=== PATIENT | female | born 1930 | race Caucasian/White ===

== ENCOUNTER → 2016-12-29 | Outpatient (CLI) | payer OTHER, BC ==
[~2016-12-29] MED LIST: ALBU18002 INH; ALBU1AER9 INH; ASPI81TA28 PO; AZEL30SP NAE; CALC8.5C PO; CEPH500C PO; CHOL1000 PO; CHOLPOW; FLUT0.0529 NAE; FLUT0.15 NAE; HYOS0.3725 SL; IBAN150T PO; LEVO1TAB33 PO; LEVO50TA6 PO; LEVO75TA5 PO; LISI-729 PO; LISI10TA PO; LORA-741 PO; MULT1TAB32 PO; MULTCAP7 PO; OMEG10007 PO; OXGN; PRD10 PO; PRED-301 PO; PRLSR20 PO; SYMIN/8045 INH; WARF-285 PO; WARF4TAB8 PO; WARF5TAB90 PO; [UNRECOGNIZED DRUG - CODE] PO
[2016-12-29 14:26] LABS: BASO % 0.3 %; BASO ABS # 0.02 K/uL (0-0.2); COMPLETE YES; HEMATOCRIT 38.3 % (37-47); IG% 0.3 %; LYMPH % 34.2 %; LYMPH ABS # 2.58 K/uL (1.2-3.4); MEAN CELL VOLUME 94.3 fL (80-100); MEAN CORPUSCULAR HEMOGLOBIN 29.6 pg (25-34); MEAN CORPUSCULAR HGB CONC 31.3 g/dl (32-36); MEAN PLATELET VOLUME 10.6 fL (7.4-10.4); MONO % 9.3 %; NEUT % 53.9 %; PLATELET COUNT 202 K/uL (130-400); RED BLOOD COUNT 4.06 M/uL (4.2-5.4); WHITE BLOOD COUNT 7.55 K/uL (4.8-10.8)
[2016-12-29 14:40] LABS: ALB/GLOB RATIO 0.9 (0.9-2); ALKALINE PHOSPHATASE 42 U/L (45-117); ALT/SGPT 30 U/L (12-78); AST/SGOT 19 U/L (15-37); BLOOD UREA NITROGEN 27 mg/dl (7-18); BUN/CREATININE RATIO 22.4 (10-20); CALCIUM 8.9 mg/dl (8.5-10.1); CARBON DIOXIDE 34 mmol/L (21-32); CHLORIDE 102 mmol/L (98-107); GLUCOSE 78 mg/dl (70-99); SODIUM 141 mmol/L (136-145)
== END | disposition home or self-care (01) ==
LOC: C.LABBC 09:30
PROVIDERS: ATTEND Family Medicine
DX: E03.9 Hypothyroidism, unspecified (principal); M81.0 Age-related osteoporosis without current pathological fracture; N18.3 Chronic kidney disease, stage 3 (moderate); I26.99 Other pulmonary embolism without acute cor pulmonale

== ENCOUNTER → 2017-02-11 | Outpatient (CLI) | payer OTHER, BC ==
--- NOTE | 2017-02-11 10:01 | DIAGNOSTIC IMAGING REPORT ---
TWO VIEW CHEST CLINICAL HISTORY: Cough.. FINDINGS: PA and lateral chest radiographs are compared to study dated 02/11/2016 and 11/02/2014. Correlation is made with chest CT dated 09/24/2015. The heart is enlarged and there is atherosclerotic calcification of the thoracic aorta. The pulmonary vasculature is noncongested. Emphysema and chronic interstitial thickening are similar to previous. There is minimal left basilar atelectasis. No airspace consolidation or pleural effusion is identified. Asymmetric right apical scarring is similar appearance to studies dating back to 2014. There is no pneumothorax. The skeletal structures are osteopenic. Mild degenerative change is noted throughout the thoracic spine. IMPRESSION: Cardiomegaly and emphysema with no active disease in the chest. Electronically signed by: Vega Draper M.D. 02/11/2017 9:59 AM Dictated Date/Time: 02/11/2017 9:57 AM
== END | disposition home or self-care (01) ==
LOC: C.RADBBURG 00:35
PROVIDERS: ATTEND Physician Assistant
DX: R05 Cough (principal); J43.9 Emphysema, unspecified; I51.7 Cardiomegaly

== ENCOUNTER → 2017-02-12 | Outpatient (CLI) | payer OTHER, BC ==
--- NOTE | 2017-02-12 11:02 | DIAGNOSTIC IMAGING REPORT ---
DOUBLE CONTRAST BARIUM ESOPHAGRAM CLINICAL HISTORY: Dysphagia. COMPARISON STUDY: Abdominal CT dated 05/07/2015. TECHNIQUE: A standard air contrast barium esophagram is performed. Multiple spot images of the esophagus are acquired both upright and prone. FINDINGS: The patient swallowed barium without difficulty. There was slightly delayed transit of the barium pill. Moderate esophageal dysmotility is observed. The mucosal pattern is normal. There is a large pulsion diverticulum seen just above the gastroesophageal junction. This was also seen by CT on 05/07/2015. There is no evidence of intrinsic or extrinsic mass lesion. No aspiration was seen. The gastroesophageal junction distended normally. No gastroesophageal reflux could be elicited by having the patient perform the Valsalva maneuver. Fluoroscopy time: 1.2 minutes. Fluoroscopic images: 24 IMPRESSION: 1. Esophageal dysmotility with delayed transit of the barium pill. 2. 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 This was also seen by CT in 2014. Electronically signed by: Vega Draper M.D. 02/12/2017 11:01 AM Dictated Date/Time: 02/12/2017 10:58 AM
== END | disposition home or self-care (01) ==
LOC: C.RAD 10:14
PROVIDERS: ATTEND Physician Assistant
DX: R13.10 Dysphagia, unspecified (principal); R05 Cough; K22.4 Dyskinesia of esophagus; K22.5 Diverticulum of esophagus, acquired

== ENCOUNTER 2017-03-28 14:13 | Emergency (ER) | payer OTHER, BC ==
[~2017-03-28] VITALS: Ht 152.4 cm; Wt 57.0 kg
[~2017-03-28 14:13] MED LIST changes: -ALBU18002 INH; -AZEL30SP NAE; -CEPH500C PO; -CHOLPOW; -FLUT0.15 NAE; -HYOS0.3725 SL; -LEVO75TA5 PO; -LISI-729 PO; -LORA-741 PO; -OXGN; -WARF-285 PO; -WARF4TAB8 PO
[2017-03-28 14:17] VITALS: TEMP 36.7; Ht 152.4 cm; Wt 57.0 kg
[2017-03-28] MEDS ORDERED: ALBU18002 INH (14:35)
[2017-03-28] MEDS ORDERED: FLUT0.15 NAE (14:35)
[2017-03-28] MEDS ORDERED: LEVO75TA5 PO (14:35)
[2017-03-28] MEDS ORDERED: WARF-285 PO (14:35)
[2017-03-28] MEDS ORDERED: HYOS0.3725 SL (14:55)
[2017-03-28] MEDS ORDERED: XYLOCAINE 1%/SOD BICARB 20 ML VIAL INFIL ONE (15:15)
--- NOTE | 2017-03-28 15:39 | DIAGNOSTIC IMAGING REPORT ---
RIGHT SHOULDER MIN 2 VIEWS ROUTINE CLINICAL HISTORY: Right shoulder pain following fall. COMPARISON: None FINDINGS: Alignment of the right shoulder is anatomic. There is no acute fracture. There is mild arthritis of the right acromioclavicular and glenohumeral joints. IMPRESSION: 1. No acute fracture or dislocation of the right shoulder. 2. Mild osteoarthritis of the right shoulder. Electronically signed by: Parker Rey M.D. 03/28/2017 3:38 PM Dictated Date/Time: 03/28/2017 3:37 PM
[2017-03-28 16:22] VITALS: BP 137/74; PULSE 82; O2SAT 94
[2017-03-28] MEDS ORDERED: DIPHTHERIA/TETANUS/PERTUSSIS 0.5 ML SYR/VIAL ONE (16:24)
[2017-03-28] MEDS ORDERED: CEPH500C PO (16:29)
[2017-03-28] MEDS ORDERED: DIPHTHERIA/TETANUS/PERTUSSIS 0.5 ML SYR/VIAL IM. ONE (16:30)
--- NOTE | 2017-03-30 18:16 | EMERGENCY ROOM VISIT NOTE ---
ED Visit Note First contact with patient: 15:03 Chief complaint: Right lower leg laceration and right elbow skin tear after fall. Right shoulder pain HPI: This 86-year-old white female presents with her family for evaluation of a laceration on her right lower leg as well as a skin tear on her right elbow after falling while playing miniature golf. She tripped on the carpet. She fell onto her right side. She complains of pain in her right shoulder. She denies striking her head. She is on Coumadin. She has been ambulatory. Bleeding was controlled with pressure. They deny any numbness, tingling, or loss of consciousness. No complaints on the left side. Tetanus is believed to be up-to-date. Pain is 8/10. Supplemental sheet was reviewed and signed. Previous surgeries: Cholecystectomy, hysterectomy Medical history: Significant for previous PE and DVT, GERD, hypothyroidism, osteoporosis, osteoarthritis, COPD, hypertension, history of asthma Current Medications: Prednisone, aspirin 81 mg, multivitamin, vitamin D, Boniva , Coumadin 5 mg 4 x week, Prilosec 20 mg, Synthroid 75 g, Coumadin 3 mg 3 times per week, Flonase nasal spray, Levbid, albuterol inhaler Allergies: Amoxicillin, Celebrex, Augmentin, lovastatin, oxybutynin, ranitidine , Bactrim, zoledronic acid Tetanus: Unknown Family History: Significant for gallbladder disease. Parents are . Social History: Retired. Lives with her daughter. No tobacco use, no EtOH use. REVIEW OF SYSTEM: HEENT: No dizziness, visual problems, hearing loss, or tinnitus. There is no difficulty swallowing and no oral lesions are present. LYMPH: No adenopathy. PULMONARY: No cough, shortness of breath, sputum production or hemoptysis. CARDIOVASCULAR: No chest pain, palpitations or peripheral edema. GASTROINTESTINAL: No diarrhea, constipation, nausea, vomiting, or abdominal pain. GENITOURINARY: No dysuria, frequency, urgency or nocturia. NEUROLOGIC: No weakness, muscle tenderness, epilepsy or history of neurological problems. MUSCULOSKELETAL: No history of joint tenderness/swelling. Positive history of arthritis and arthralgias. SKIN: No rashes or lesions. PSYCHIATRIC: No history of depression or mental illness. ENDOCRINE: No history of diabetes or abnormal hair growth. Physical Exam: Vitals: Afebrile. Reviewed and filed in patient's chart General: Frail, elderly, white female, in no acute distress. Obvious discomfort. She is laying on the bed. Alert and oriented. Skin: Warm and dry with fair turgor. No rashes. Skin tear with ecchymosis is present over the olecranon of her right elbow. She has a large flap tear laceration on the lateral aspect of her right lower leg. It is approximately 11 cm in length. The patient is not diaphoretic. Small abrasion on her right knee. She has no visible injury to her head or neck. HEENT: Normocephalic atraumatic. Eyes PERRLA, EOMI. No conjunctiva or scleral injection. Ears TMs intact bilaterally with good light reflexes. No erythema or bulging. No hemotympanum. Canals are patent. Nares patent bilaterally without turbinate enlargement. No significant drainage. No epistaxis. Oropharynx without erythema or exudate. Uvula midline, oral mucosa moist. No lesions present. Heart: Heart RRR. No GR. 3/6 systolic ejection murmur noted. Peripheral pulses are 2+. Lungs: Lungs are clear to auscultation. No crackles rhonchi or wheezing. Good air movement. The patient is able to take a deep breath. Chest: No pain with palpation of the ribs. Musculoskeletal: She has no discomfort with palpation over her cervical, thoracic, or lumbar spine. She has discomfort with palpation over the right shoulder. It is over the rotator cuff musculature as well as the humeral head. No palpable deformity. It is not dislocated. She has full range of motion of her elbow. No pain with palpation around the elbow other than the skin tear. Supple motion of her hips and knees bilaterally. Supple motion of her ankles bilaterally. No laxity with stressing of her right knee. Neurologic: Gross sensation is intact across the upper and lower extremities by soft touch. Cranial nerves II through XII are intact. Data: Radiographic imaging obtained today of the right shoulder was read by radiology. No acute fracture or dislocation. Mild osteoarthritis. Impression: Fall. Right elbow skin tear. Right lower leg 11 cm Laceration. Right shoulder contusion Procedure: Informed oral consent was obtained for repair of the elbow and lower leg. Lower leg was prepped with Betadine and draped with a sterile towel. Area was anesthetized using 9 mL 1% plain buffered lidocaine in a direct infiltration. Thorough inspection was performed. There is no muscle or bone exposure. No foreign material is present. Wound was irrigated copiously using normal sterile saline under jet spray lavage. Wound was closed using 4-0 nylon. Excellent wound edge approximation was achieved. Hemostasis was achieved. Right elbow was then cleansed with Betadine and saline. Benzoin and Steri-Strips were used to approximate the skin tear. It is superficial. Good wound edge approximation was achieved. Hemostasis was achieved. Plan: Patient was educated regarding today's findings as was her family. Conservative care measures were discussed. Cleanse the wounds daily with soap and water and reapply a small amount of bacitracin on the leg wound only. Ice and elevate intermittently as needed for discomfort. Tylenol every 6 hours as needed for pain. Wound care handout was provided. Sutures out in 12-14 days. She may shower. Avoid soaking or swimming for two weeks. Return to the ER for any acute changes or signs of infection. In regard to the shoulder, she may require physical therapy to prevent adhesive capsulitis. Possibility of rotator cuff tear was discussed. I do not think this would be operative in an 86-year-old female. She may follow-up with her PCP or orthopedist for further evaluation. Sling was provided for comfort. Tetanus was updated using Adacel 0.5 mL IM. I did check with her several times to be sure that she did not strike her head. We did discuss the risks of intracranial injury in someone who is on Coumadin. She reiterated as did her family, that she did not strike her head. Problem List Medical Problems: (1) Asthma, Unspecified Status: Chronic (2) COPD (chronic obstructive pulmonary disease) Status: Chronic (3) Depressive Disorder Nec Status: Chronic (4) Hypertension Nos Status: Chronic (5) Pure Hypercholesterolem Status: Chronic (6) Thyroid disorder Status: Chronic Current/Historical Medications Scheduled Albuterol Sulfate (Proair Respiclick), 2 PUFF INH BID Aspirin (Aspirin Ec), 81 MG PO HS Budesonide/Formoterol Fumarate (Symbicort 80/4.5 Inhaler), 2 PUFFS INH BID Calcium W/ Vitamins D & K (Viactiv), 500 MG PO BID Cephalexin Monohydrate (Keflex), 500 MG PO TID Cholecalciferol (Vitamin D3), 1,000 UNITS PO DAILY Fish Oil ([place]-3), 1 CAP PO DAILY Fluticasone Propionate (Nasal) (Flonase Allergy Relief), 2 SPRAYS PERI DAILY Ibandronate Sodium (Boniva), 150 MG PO MONTHLY Lecithin (Lecithin-19), 1 CAP PO DAILY Levothyroxine Sodium (Levothyroxine Sodium), 75 MCG PO DAILY Lisinopril (Prinivil), 10 MG PO DAILY Multiple Vitamins W/ Minerals (One Daily Womens 50+), 0.5 TAB PO AMPM Multiple Vitamins W/ Minerals (Eye Vitamins), 1 CAP PO QAM Omeprazole (Prilosec), 20 MG PO DAILY Prednisone (Prednisone), 5 MG PO DAILY Warfarin Sodium (Coumadin), 5 MG PO 4XWK Warfarin Sodium (Warfarin Sodium), 3 MG PO 3XWK Scheduled PRN Hyoscyamine Sulfate (Levbid), 1 TAB SL UD PRN for abd pain Allergies Coded Allergies: Sulfamethoxazole w/Trimethoprim (Verified Adverse Reaction, Intermediate, AGITATION, 07/06/15) Amoxicillin (Verified Adverse Reaction, Unknown, unknown, 07/06/15) Celecoxib (Verified Adverse Reaction, Unknown, nausea, 07/06/15) Clavulanic Acid (Verified Adverse Reaction, Unknown, unknown, 07/06/15) Lovastatin (Verified Adverse Reaction, Unknown, effects muscles, 07/06/15) Oxybutynin (Verified Adverse Reaction, Unknown, nausea, 07/06/15) Ranitidine (Verified Adverse Reaction, Unknown, contraindicated while on warfarin, 03/28/17) Zoledronic Acid (Verified Adverse Reaction, Unknown, nausea, 07/06/15) Vital Signs Date Time Temp Pulse Resp B/P (MAP) Pulse Ox O2 Delivery O2 Flow Rate FiO2 03/28/17 16:22 82 18 137/74 94 Room Air 03/28/17 14:17 36.7 93 18 135/60 97 Room Air Medications Administered Medications (Trade) Dose Ordered Sig/Alexandr Route Start Time Stop Time Status Last Admin Dose Admin Lidocaine HCl (Buffered Lidocaine 1% Inj) 20 ml NOW ONCE INFIL 03/28/17 15:15 03/28/17 15:16 DC 03/28/17 15:15 20 ML Diphtheria/ Pertussis/Tetanus Vacc (Adacel Inj) 0.5 ml ONCE ONCE IM. 03/28/17 16:30 03/28/17 16:31 DC 03/28/17 16:28 0.5 ML Departure Information Impression Primary Impression: Laceration of leg not thigh, right Additional Impressions: Fall elbow skin tear, right Dispostion Home / Self-Care Condition GOOD Prescriptions Cephalexin Monohydrate (Keflex) 500 Mg Cap 500 MG PO TID, #21 CAP Prov: Gregorio Rabago,P.A. 03/28/17 Referrals No Doctor, Assigned (PCP) Forms HOME CARE DOCUMENTATION FORM, Days to leave dressing on : 1 Clean wound with;: soap and water Number of times/day to clean wound: 1 Coat wound with: antibiotic ointment Suture removal in how many days: 12-14 TYLENOL USE, WOUND CARE INSTRUCTIONS, IMPORTANT VISIT INFORMATION Patient Instructions My [facility] Additional Instructions Cleanse the wound daily with soap and water Avoid swimming or soaking for 2 weeks you may shower and wash your hands Tylenol every 6 hours as needed for discomfort Sutures out in 12-14 days Return to the ED for any acute changes or signs of infection Steri-Strips on the elbow will fall off on their own in 5-7 days Keflex one pill 3 times a day 7 days Follow-up with your PCP for your shoulder, and to discuss physical therapy Use a sling as needed for comfort. Ice to the shoulder frequently to reduce pain and swelling Gentle motion daily to prevent stiffness Problem Qualifiers
[2017-04-06] MEDS ORDERED: CHOLPOW (11:07)
[2017-04-06] MEDS ORDERED: LORA-741 PO (11:07)
[2017-04-06] MEDS ORDERED: AZEL30SP NAE (11:07)
[2017-05-19] MEDS ORDERED: OXGN (10:48)
[2017-06-09] MEDS ORDERED: WARF4TAB8 PO (15:29)
[2017-07-16] MEDS ORDERED: LISI-729 PO (10:30)
== END 2017-03-28 16:40 | disposition home or self-care (01) ==
LOC: C.EDB 14:14 → C.EDD 16:40
DX: S81.811A Laceration without foreign body, right lower leg, initial encounter (principal); S51.011A Laceration without foreign body of right elbow, initial encounter; S40.011A Contusion of right shoulder, initial encounter; W18.09XA Striking against other object with subsequent fall, initial encounter; Y93.53 Activity, golf; Y99.8 Other external cause status; Z23 Encounter for immunization; J45.909 Unspecified asthma, uncomplicated; K21.9 Gastro-esophageal reflux disease without esophagitis; I10 Essential (primary) hypertension; M19.90 Unspecified osteoarthritis, unspecified site; E03.9 Hypothyroidism, unspecified; J44.9 Chronic obstructive pulmonary disease, unspecified; M81.0 Age-related osteoporosis without current pathological fracture; Z86.711 Personal history of pulmonary embolism; Z86.718 Personal history of other venous thrombosis and embolism; Z90.710 Acquired absence of both cervix and uterus; Z90.49 Acquired absence of other specified parts of digestive tract; Z79.01 Long term (current) use of anticoagulants; Z79.52 Long term (current) use of systemic steroids; Z79.82 Long term (current) use of aspirin; Z79.899 Other long term (current) drug therapy

== ENCOUNTER 2017-04-01 15:24 | Emergency (ER) | payer OTHER, BC ==
[~2017-04-01] VITALS: Ht 152.4 cm; Wt 57.9 kg
[~2017-04-01 15:24] MED LIST changes: +ALBU18002 INH; -ALBU1AER9 INH; +CEPH500C PO; -FLUT0.0529 NAE; +FLUT0.15 NAE; +HYOS0.3725 SL; -LEVO1TAB33 PO; -LEVO50TA6 PO; +LEVO75TA5 PO; -PRD10 PO; +WARF-285 PO
[2017-04-01 15:40] VITALS: BP 146/71; TEMP 37.1; Ht 152.4 cm; Wt 57.9 kg
[2017-04-01 16:25] LABS: BASO % 0.3 %; BASO ABS # 0.02 K/uL (0-0.2); COMPLETE YES; EOS % 1.6 %; HEMATOCRIT 34.6 % (37-47); IG% 0.3 %; LYMPH % 13.9 %; LYMPH ABS # 1.11 K/uL (1.2-3.4); MEAN CELL VOLUME 97.5 fL (80-100); MEAN CORPUSCULAR HEMOGLOBIN 30.4 pg (25-34); MEAN CORPUSCULAR HGB CONC 31.2 g/dl (32-36); MEAN PLATELET VOLUME 10.3 fL (7.4-10.4); MONO % 6.6 %; NEUT % 77.3 %; PLATELET COUNT 180 K/uL (130-400); RED BLOOD COUNT 3.55 M/uL (4.2-5.4); WHITE BLOOD COUNT 7.98 K/uL (4.8-10.8)
[2017-04-01 16:32] LABS: INR 1.8 (0.9-1.1); PROTHROMBIN TIME (PATIENT) 19.8 SECONDS (9.0-12.0)
--- NOTE | 2017-04-01 17:08 | EMERGENCY ROOM VISIT NOTE ---
ED Visit Note First contact with patient: 15:51 Staff note: I have reviewed the Patients chart and have discussed this case with my PA. I generally agree with the ED note and findings.
[2017-04-01 17:15] VITALS: PULSE 88; O2SAT 98
--- NOTE | 2017-04-02 11:53 | EMERGENCY ROOM VISIT NOTE ---
ED Visit Note First contact with patient: 15:51 Chief Complaint: Wound recheck. History of Present Illness: Ms. Fernandez is a 86-year-old white female who ambulates into the ED with her cane accompanied by her daughter requesting a recheck of the wound she had sutured 2 days ago. Historically patient reports she sustained a laceration when she was playing miniature golf with her grandchildren. The laceration is located over the anterior aspect of the right lower leg. She reports since having her wound repaired she continues to have a mild pain at rest that increases with ambulation. Currently she describes her base pain as an achy sensation and her ambulatory pain sharp. She rates her worse discomfort 9/10. The pain is nonradiating. The pain improves with rest. She has not taken any medication for pain prior to arrival at the hospital. Associated with her pain she feels the area is swollen and has been coming increasingly more red and she has noted mild nonpurulent drainage from the wound. She denies fevers, chills, sweats, other skin eruptions, chest pain, shortness of breath, decreased appetite, nausea, vomiting, extremity weakness. Review of Systems: As noted above in history of present illness. 8 body systems were reviewed and found to be negative as noted above. Please see previous documentation for past medical history, current medications , allergies and social history. Physical Examination: Vital Signs: Date Time Temp Pulse Resp B/P (MAP) Pulse Ox O2 Delivery O2 Flow Rate FiO2 04/01/17 17:15 88 18 98 04/01/17 15:40 37.1 82 18 146/71 96 Room Air GENERAL: 86-year-old female in mild distress due to pain, nontoxic-appearing, afebrile and hemodynamically stable. NEUROLOGICAL: Awake, alert and oriented to person, place and time. Answering questions appropriately and following commands. Stable gait with cane use. Good hand eye coordination. No focal motor or sensory deficits. SKIN: Warm, dry and pink. Right Lower Leg: Patient's laceration is a large inverted U-shaped. The wound has mild erythema around the wound but the skin does not appear cellulitic. I feel this is most likely related to the trauma of the injury and not infectious. There is mild serous sanguinous drainage from the wound but no purulent drainage. The skin around the wound is slightly more warm than the rest of her leg but is not hot. There is no lymphangitis. The sutures are holding well. HEENT: Atraumatic and normocephalic. THORAX: Lungs sounds are clear to auscultation and equal bilaterally with symmetrical chest wall. ABDOMEN: Flat, soft and nontender. Positive bowel sounds in all quadrants. No guarding, rigidity or organomegaly. RIGHT LOWER EXTREMITY: No gross bony deformity. No tenderness in the hip, knee , ankle or foot. Soft tissue injury as described above. Below the soft tissue injury there is mild swelling that extends down into the ankle and the top of the foot. Once again this is not erythematous and does not appear cellulitic. Distal pulses are intact. Sensation is intact. Patient has full range of motion of plantar flexion and dorsiflexion of the ankle and flexion and extension of the knee. Capillary refill is brisk. ED Course: Patient is assessed as noted above. Patient's medication list was reviewed. Patient does report she is currently on blood thinners and is requesting that her INR rechecked because of her concurrent use of antibiotics; I felt that was appropriate and since we're doing testing I will also test her CBC. Laboratory Testing: Test 04/01/17 16:10 Range/Units White Blood Count 7.98 4.8-10.8 K/uL Red Blood Count 3.55 4.2-5.4 M/uL Hemoglobin 10.8 12.0-16.0 g/dL Hematocrit 34.6 37-47 % Mean Corpuscular Volume 97.5 80-100 fL Mean Corpuscular Hemoglobin 30.4 25-34 pg Mean Corpuscular Hemoglobin Concent 31.2 32-36 g/dl Platelet Count 180 130-400 K/uL Mean Platelet Volume 10.3 7.4-10.4 fL Neutrophils (%) (Auto) 77.3 % Lymphocytes (%) (Auto) 13.9 % Monocytes (%) (Auto) 6.6 % Eosinophils (%) (Auto) 1.6 % Basophils (%) (Auto) 0.3 % Neutrophils # (Auto) 6.17 1.4-6.5 K/uL Lymphocytes # (Auto) 1.11 1.2-3.4 K/uL Monocytes # (Auto) 0.53 0.11-0.59 K/uL Eosinophils # (Auto) 0.13 0-0.5 K/uL Basophils # (Auto) 0.02 0-0.2 K/uL RDW Standard Deviation 49.9 36.4-46.3 fL RDW Coefficient of Variation 13.9 11.5-14.5 % Immature Granulocyte % (Auto) 0.3 % Immature Granulocyte # (Auto) 0.02 0.00-0.02 K/uL Prothrombin Time 19.8 9.0-12.0 SECONDS Prothromb Time International Ratio 1.8 0.9-1.1 Patient was reassessed multiple times during her stay in the emergency department. Patient's case was reviewed with Dr. Lopez; in a timely assessed the patient we agreed on diagnostic approach, treatment, disposition and plan. Patient and daughter were educated about today's findings and instructed on her treatment plan; she verbalizes understanding and agreement with this plan. Clinical Impression: Wound recheck. Minimally subtherapeutic INR. Disposition: Patient discharged home in stable condition; prior to departure she was reassessed and subjectively reported she was pain-free. Plan: Patient was encouraged to continue her current medications as prescribed. Patient was encouraged to call her PCP tomorrow and inform them of today's ED visit and her INR level. Patient was encouraged to follow-up with her PCP or return to the ED for recheck again in 36-48 hours. Patient was encouraged return the ED sooner for increasing redness/swelling specifically outside the area that was demarcated, red streaking, fevers, worsening drainage or any new/concerning symptoms.
[2017-04-06] MEDS ORDERED: LORA-741 PO (11:07)
[2017-04-06] MEDS ORDERED: AZEL30SP NAE (11:07)
[2017-04-06] MEDS ORDERED: CHOLPOW (11:07)
[2017-05-19] MEDS ORDERED: OXGN (10:48)
[2017-06-09] MEDS ORDERED: WARF4TAB8 PO (15:29)
[2017-07-16] MEDS ORDERED: LISI-729 PO (10:30)
== END 2017-04-01 17:16 | disposition home or self-care (01) ==
LOC: C.EDB 15:30 → C.EDD 17:16
DX: Z48.00 Encounter for change or removal of nonsurgical wound dressing (principal)

== ENCOUNTER → 2017-07-27 | Outpatient (CLI) | payer OTHER, BC ==
[~2017-07-27] MED LIST changes: -ASPI81TA28 PO; -CEPH500C PO; +CHOLPOW; +LISI-729 PO; -LISI10TA PO; +LORA-741 PO; +OXGN; -WARF-285 PO; +WARF4TAB8 PO; -WARF5TAB90 PO
[2017-07-27 11:26] LABS: BLOOD UREA NITROGEN 27 mg/dl (7-18); BUN/CREATININE RATIO 24.5 (10-20); CALCIUM 9.5 mg/dl (8.5-10.1); CARBON DIOXIDE 31 mmol/L (21-32); CHLORIDE 103 mmol/L (98-107); GLUCOSE 89 mg/dl (70-99); SODIUM 139 mmol/L (136-145)
== END | disposition home or self-care (01) ==
LOC: C.LABBC 09:04
PROVIDERS: ATTEND Physician Assistant
DX: I10 Essential (primary) hypertension (principal)

== ENCOUNTER → 2017-09-14 | Outpatient (CLI) | payer OTHER, BC ==
--- NOTE | 2017-09-15 15:08 | MAMMOGRAPHY REPORT ---
BILATERAL DIGITAL SCREENING MAMMOGRAM TOMOSYNTHESIS WITH CAD: 09/14/2017 CLINICAL HISTORY: Routine screening. Patient has no complaints. TECHNIQUE: Breast tomosynthesis in addition to standard 2D mammography was performed. Current study was also evaluated with a Computer Aided Detection (CAD) system. COMPARISON: Comparison is made to exams dated: 09/09/2016 mammogram, 09/07/2015 mammogram, 4 mammogram - [facility], 08/29/2013 mammogram, 08/26/2012 mammogram, and 08/22/2010 mammogram. BREAST COMPOSITION: The tissue of both breasts is almost entirely fatty. FINDINGS: There are mild vascular calcifications in the breasts. Scattered benign-appearing rodlike, probable secretory calcifications bilaterally. No suspicious mass, architectural distortion or clus ter of suspicious microcalcifications is seen. IMPRESSION: ACR BI-RADS CATEGORY 1: NEGATIVE There is no mammographic evidence of malignancy. A 1 year screening mammogram is recommended. The pa tient will receive written notification of the results. Approximately 10% of breast cancers are not detected with mammography. A negative mammographic report should not delay biopsy if a clinically suggestive mass is present. Vicki Salvador M.D. ay/:09/14/2017 15:16:33 Certified Personal Trainer: Kaur LY(Shilpi)(Chris)(MATTY), [facility] letter sent: Normal 1/2 BI-RADS Code: ACR BI-RADS Category 1: Negative
== END | disposition home or self-care (01) ==
LOC: C.MAMM 14:35
PROVIDERS: ATTEND Physician Assistant
DX: Z12.31 Encounter for screening mammogram for malignant neoplasm of breast (principal)

== ENCOUNTER → 2017-09-28 | Outpatient (CLI) | payer OTHER, BC | END | disposition home or self-care (01) | LOC: C.MAMM 10:18 | PROVIDERS: ATTEND Physician Assistant | DX: M81.0 Age-related osteoporosis without current pathological fracture (principal); M85.88 Other specified disorders of bone density and structure, other site; M85.851 Other specified disorders of bone density and structure, right thigh; M85.852 Other specified disorders of bone density and structure, left thigh ==

== ENCOUNTER → 2017-10-05 | Outpatient (CLI) | payer OTHER, BC ==
--- NOTE | 2017-10-05 15:44 | DIAGNOSTIC IMAGING REPORT ---
ULTRASOUND R VENOUS DOPPLER UPR EXT UNILATERAL CLINICAL HISTORY: RIGHT ARM PAIN AND SWELLING AND RIGHT WRIST COMPARISON STUDY: No previous studies for comparison. FINDINGS: No intraluminal thrombus was visualized. The internal jugular, subclavian, axillary, cephalic, brachial, basilic, radial, and ulnar veins were patent. There is a small amount of fluid surrounding an anterolateral tendon sheath at the level of the wrist. IMPRESSION: No evidence of right upper extremity DVT. Electronically signed by: Jose Sims M.D. 10/05/2017 3:43 PM Dictated Date/Time: 10/05/2017 3:41 PM
--- NOTE | 2017-10-05 16:25 | DIAGNOSTIC IMAGING REPORT ---
R WRIST MIN 3 VIEWS ROUTINE CLINICAL HISTORY: 87 years-old Female presenting with RIGHT ARM PAIN AND SWELLING AND RIGHT WRIST. TECHNIQUE: Frontal, bilateral oblique, and lateral views of the right wrist were obtained. COMPARISON: None. FINDINGS: Osteopenia. Degenerative changes of the scaphoid-trapezium and trapezium-first metacarpal articulations with joint space loss and subchondral sclerosis. Radiocarpal articulations are preserved. No acute fracture or malalignment. No soft tissue abnormality. IMPRESSION: No acute osseous injury of the right wrist allowing for osteopenia, which limits diagnostic sensitivity the exam. Osteoarthritis. Electronically signed by: Catracho Hamilton M.D. 10/05/2017 4:23 PM Dictated Date/Time: 10/05/2017 4:21 PM
== END | disposition home or self-care (01) ==
LOC: C.ULTRBC 14:52
PROVIDERS: ATTEND Physician Assistant Medical
DX: M25.531 Pain in right wrist (principal); Z79.01 Long term (current) use of anticoagulants

== ENCOUNTER → 2017-11-11 | Outpatient (CLI) | payer OTHER, BC ==
[2017-11-11 13:05] LABS: INFLUENZA A PCR Neg for Influ A (NEG); INFLUENZA B PCR Neg for Influ B (NEG)
== END | disposition home or self-care (01) ==
LOC: C.LAB1850 11:26
PROVIDERS: ATTEND Physician Assistant
DX: R05 Cough (principal)

== ENCOUNTER → 2018-01-25 | Outpatient (CLI) | payer OTHER, BC ==
[~2018-01-25] MED LIST changes: -LISI-729 PO; +LOSA1TAB PO
[2018-01-25 13:53] LABS: BASO % 0.3 %; BASO ABS # 0.02 K/uL (0-0.2); EOS % 1.8 %; EOS ABS # 0.13 K/uL (0-0.5); HEMATOCRIT 39.6 % (37-47); HEMOGLOBIN 12.4 g/dL (12.0-16.0); IG# 0.01 K/uL (0.00-0.02); LYMPH ABS # 2.81 K/uL (1.2-3.4); MEAN CELL VOLUME 95.4 fL (80-100); MEAN CORPUSCULAR HEMOGLOBIN 29.9 pg (25-34); MEAN CORPUSCULAR HGB CONC 31.3 g/dl (32-36); MEAN PLATELET VOLUME 10.6 fL (7.4-10.4); MONO % 8.7 %; MONO ABS # 0.63 K/uL (0.11-0.59); NEUT % 50.1 %; NEUT ABS # 3.61 K/uL (1.4-6.5); PLATELET COUNT 228 K/uL (130-400); RED CELL DISTRIBUTION WIDTH CV 13.9 % (11.5-14.5); RED CELL DISTRIBUTION WIDTH SD 48.5 fL (36.4-46.3); WHITE BLOOD COUNT 7.21 K/uL (4.8-10.8)
[2018-01-25 15:04] LABS: ALBUMIN 3.2 gm/dl (3.4-5.0); ALT/SGPT 34 U/L (12-78); AST/SGOT 24 U/L (15-37); BLOOD UREA NITROGEN 16 mg/dl (7-18); CALCIUM 9.1 mg/dl (8.5-10.1); CARBON DIOXIDE 33 mmol/L (21-32); CHOLESTEROL 214 mg/dl (0-200); CREATININE 1.16 mg/dl (0.60-1.20); GLUCOSE 78 mg/dl (70-99); POTASSIUM 3.8 mmol/L (3.5-5.1); SODIUM 141 mmol/L (136-145)
[2018-01-25 15:15] LABS: ALKALINE PHOSPHATASE 46 U/L (45-117); LDL CHOLESTEROL CALCULATED 120 mg/dl; TOTAL PROTEIN 6.9 gm/dl (6.4-8.2)
== END | disposition home or self-care (01) ==
LOC: C.LABBC 09:28
PROVIDERS: ATTEND Nurse Practitioner Adult Health
DX: E78.5 Hyperlipidemia, unspecified (principal); I10 Essential (primary) hypertension; E03.9 Hypothyroidism, unspecified; M81.0 Age-related osteoporosis without current pathological fracture; Z79.01 Long term (current) use of anticoagulants

== ENCOUNTER → 2018-02-01 | Outpatient (CLI) | payer OTHER, BC ==
--- NOTE | 2018-02-01 09:57 | DIAGNOSTIC IMAGING REPORT ---
R SHOULDER MIN 2 VIEWS ROUTINE CLINICAL HISTORY: M25.511 Right shoulder [id number] trauma COMPARISON: 03/28/2017 DISCUSSION: No fractures or dislocations are visualized. There are mild degenerative changes present. IMPRESSION: No fractures or dislocations identified. Electronically signed by: Jose Sims M.D. 02/01/2018 9:56 AM Dictated Date/Time: 02/01/2018 9:55 AM
--- NOTE | 2018-02-01 10:02 | DIAGNOSTIC IMAGING REPORT ---
L-SPINE MIN 4 VIEWS ROUTINE HISTORY: Pain M25.511 Right shoulder [id number] [place] COMPARISON: None. FINDINGS: There is no fracture. No subluxation. Mild degenerative disc changes noted throughout. No evidence for compression deformity. The posterior elements appear to be intact. IMPRESSION: Mild degenerative disc change. No acute bony abnormality The above report was generated using voice recognition software. It may contain grammatical, syntax or spelling errors. Electronically signed by: Armando Perez M.D. 02/01/2018 10:00 AM Dictated Date/Time: 02/01/2018 9:59 AM
--- NOTE | 2018-02-01 10:04 | DIAGNOSTIC IMAGING REPORT ---
THORACIC SPINE 3 VIEWS ROUTINE HISTORY: Pain M25.511 Right shoulder [id number] [place]righ COMPARISON: None. FINDINGS: There is no fracture. No subluxation. Mild degenerative disc change throughout. Mild scoliosis. IMPRESSION: Mild scoliosis. Mild degenerative disc change. No acute process. The above report was generated using voice recognition software. It may contain grammatical, syntax or spelling errors. Electronically signed by: Armando Perez M.D. 02/01/2018 10:03 AM Dictated Date/Time: 02/01/2018 10:00 AM
== END | disposition home or self-care (01) ==
LOC: C.RADBC 09:19
PROVIDERS: ATTEND Nurse Practitioner Adult Health
DX: M47.816 Spondylosis without myelopathy or radiculopathy, lumbar region (principal); M41.9 Scoliosis, unspecified; W19.XXXA Unspecified fall, initial encounter; M25.511 Pain in right shoulder

== ENCOUNTER → 2018-05-20 | Outpatient (CLI) | payer OTHER, BC ==
[~2018-05-20] MED LIST changes: +ACET-1256 PO; -FLUT0.15 NAE
--- NOTE | 2018-05-20 15:53 | DIAGNOSTIC IMAGING REPORT ---
L HAND MIN 3 VIEWS ROUTINE CLINICAL HISTORY: FALL RIGHT HAND PAIN COMPARISON: None. DISCUSSION: No acute fractures are visualized. There are no dislocations. The bones are osteopenic. There are moderately extensive erosive osteoarthritic changes most pronounced the level the proximal distal interphalangeal joints. Osteoarthritic changes are also present the level the first carpal metacarpal joint. There is a small corticated ossicle at the level of the lateral base of the fifth metacarpal. This is felt to be old. IMPRESSION: 1. Moderately advanced erosive osteoarthritic changes 2. No acute fractures identified Electronically signed by: Jose Sims M.D. 05/20/2018 3:52 PM Dictated Date/Time: 05/20/2018 3:51 PM
== END | disposition home or self-care (01) ==
LOC: C.RADBC 14:59
PROVIDERS: ATTEND Nurse Practitioner Adult Health
DX: M19.041 Primary osteoarthritis, right hand (principal); W19.XXXA Unspecified fall, initial encounter